=== PATIENT | male | born 1935 | race Caucasian/White ===

== ENCOUNTER 2017-02-13 10:48 | Inpatient (IN) | payer OTHER ==
[~2017-02-13] VITALS: Ht 185.4 cm; Wt 84.7 kg
[~2017-02-13 10:48] MED LIST: ALBU8.5H8 IH; AMLO10TA4 PO; ASCO250T2 PO; ASPI325T17 PO; ATEN25TA PO; BUSP15TA PO; BUSP5TAB2 PO; CIPR500T87 PO; DIPH25CA61 PO; DOCU100T3 PO; DULO30CA2 PO; ENOX40SY4 SQ; FLUC200T4 PO; GABA100C PO; GUAI400T6 PO; HALO5AMP3 PO; HYDR1TAB12 PO; INSU100V5 SQ-INSULIN; INSU100V8 SQ; LISI-170 PO; LISI2.5T PO; LORA-445 PO; LORA2TAB PO; MELA10CA PO; METO50TA82 PO; METR500T PO; MULT-115 PO; OXYC5CAP2 PO; PANT40TA5 PO; POTA10TA11 PO; PRED5TAB PO; SERT25TA3 PO; TRAM-47 PO; TRAZ100T15 PO
[2017-02-13] MEDS ORDERED: morphine SULFATE 10 MG/ML, 1ML ONE ×2 (11:46→12:56)
[2017-02-13] MEDS ORDERED: ONDANSETRON 2MG/ML, 2ML IVPush ONE (12:00)
[2017-02-13 12:08] LABS: HEMATOCRIT 39.7 % (39.2-51.8); HEMOGLOBIN 13.2 g/dL (13.7-18.0)
[2017-02-13 12:18] LABS: BLOOD UREA NITROGEN 27 mg/dL (7-18)
[2017-02-13 12:22] LABS: ASPARTATE AMINO TRANSFERASE 11 U/L (15-37)
[2017-02-13 12:31] LABS: ANISOCYTOSIS 1+
[2017-02-13] MEDS: MORPHINE SULFATE 4 MG/ML, 1ML IVPush PRN ×2 (12:44→13:09)
[2017-02-13] MEDS ORDERED: ONDANSETRON 2MG/ML, 2ML ONE (12:56)
[2017-02-13] MEDS ORDERED: ONDANSETRON 2MG/ML, 2ML IVPush PRN ×2 (13:00→13:30)
[2017-02-13] MEDS ORDERED: MORPHINE SULFATE 4 MG/ML, 1ML IVPush PRN (13:00)
[2017-02-13] MEDS ORDERED: SODIUM CHLORIDE FLUSH 10ML SYR IVF PRN (13:00)
[2017-02-13] MEDS ORDERED: GUAIFENESIN/DM 200-20MG, 10ML UDC PO PRN (13:30)
[2017-02-13] MEDS ORDERED: GUAIFENESIN 400 MG PO PRN (13:30)
[2017-02-13] MEDS ORDERED: ONDANSETRON ODT 4 MG PO PRN (13:30)
[2017-02-13] MEDS ORDERED: ALBUTEROL SULFATE 2.5 MG/3 ML HHN PRN (14:00)
[2017-02-13 14:09] VITALS: BP 183/98
[2017-02-13] MEDS: GABAPENTIN 100 MG CAPSULE PO SCH ×2 (16:43→21:19)
[2017-02-13] MEDS: LABETALOL 5MG/ML, 20ML IVPush PRN (16:57)
[2017-02-13 17:17] VITALS: BP 168/83
[2017-02-13 18:19] LABS: HEMATOCRIT 39.8 % (39.2-51.8); HEMOGLOBIN 13.2 g/dL (13.7-18.0)
[2017-02-13] MEDS: HYDROcodone/APAP 5/325 TABLET PO PRN ×2 (18:19→22:03)
[2017-02-13 19:02] VITALS: BP 146/81
[2017-02-13 21:16] VITALS: BP 132/80
[2017-02-13] MEDS: BUSPIRONE 5 MG TABLET PO SCH (21:18)
[2017-02-13] MEDS: METOPROLOL TARTRATE 50 MG TABLET PO SCH (21:18)
[2017-02-13] MEDS: LISINOPRIL 20 MG TABLET PO SCH (21:19)
[2017-02-13] MEDS: LORazepam 1MG TABLET PO SCH (21:19)
[2017-02-14 01:15] VITALS: BP 137/76
[2017-02-14 05:19] LABS: HEMOGLOBIN 11.4 g/dL (13.7-18.0); WHITE BLOOD COUNT 9.6 x10^3/uL (3.4-10)
[2017-02-14 05:20] LABS: BLOOD UREA NITROGEN 30 mg/dL (7-18)
[2017-02-14 06:37] VITALS: BP 158/77
[2017-02-14] MEDS ORDERED: SENNA/DOCUSATE TABLET PO SCH (09:00)
[2017-02-14] MEDS ORDERED: CYANOCOBALAMIN 1,000 MCG/ML, 1ML IM ONE (09:30)
[2017-02-14] MEDS: LISINOPRIL 20 MG TABLET PO SCH ×2 (10:00→20:22)
[2017-02-14] MEDS: PANTOPROZOLE 40MG TABLET PO SCH (10:00)
[2017-02-14] MEDS: CHOLECALCIFEROL 1,000 UNIT TABLET PO SCH (10:00)
[2017-02-14] MEDS: GABAPENTIN 100 MG CAPSULE PO SCH ×3 (10:00→20:22)
[2017-02-14] MEDS: ASCORBIC ACID 500 MG TABLET PO SCH (10:00)
[2017-02-14] MEDS: METOPROLOL TARTRATE 50 MG TABLET PO SCH ×2 (10:01→20:22)
[2017-02-14] MEDS: DULOXETINE 30 MG CAPSULE.DR PO SCH (10:01)
[2017-02-14] MEDS: MULTIVITAMIN 1 TABLET PO SCH (10:01)
[2017-02-14] MEDS: BUSPIRONE 5 MG TABLET PO SCH ×2 (10:02→20:22)
[2017-02-14] MEDS: HYDROcodone/APAP 5/325 TABLET PO PRN ×2 (10:02→15:14)
[2017-02-14] MEDS: LORazepam 1MG TABLET PO SCH ×2 (10:03→20:22)
[2017-02-14 12:51] VITALS: BP 160/91
[2017-02-14 13:01] VITALS: BP 101/66
[2017-02-14 20:17] VITALS: BP 165/85
[2017-02-15 02:01] VITALS: BP 173/100
[2017-02-15] MEDS: LABETALOL 5MG/ML, 20ML IVPush PRN (02:08)
[2017-02-15] MEDS: HYDROcodone/APAP 5/325 TABLET PO PRN (03:54)
[2017-02-15 05:44] LABS: HEMATOCRIT 40.3 % (39.2-51.8); HEMOGLOBIN 13.6 g/dL (13.7-18.0); WHITE BLOOD COUNT 14.5 x10^3/uL (3.4-10)
[2017-02-15 06:02] LABS: ASPARTATE AMINO TRANSFERASE 9 U/L (15-37); BLOOD UREA NITROGEN 23 mg/dL (7-18)
[2017-02-15 07:49] VITALS: BP 106/67
[2017-02-15] MEDS: BUSPIRONE 5 MG TABLET PO SCH ×2 (08:55→22:21)
[2017-02-15] MEDS: LISINOPRIL 20 MG TABLET PO SCH ×2 (08:55→22:20)
[2017-02-15] MEDS: CHOLECALCIFEROL 1,000 UNIT TABLET PO SCH (08:56)
[2017-02-15] MEDS: DULOXETINE 30 MG CAPSULE.DR PO SCH (08:56)
[2017-02-15] MEDS: MULTIVITAMIN 1 TABLET PO SCH (08:56)
[2017-02-15] MEDS: SENNA/DOCUSATE TABLET PO SCH (08:56)
[2017-02-15] MEDS: PANTOPROZOLE 40MG TABLET PO SCH (08:56)
[2017-02-15] MEDS: METOPROLOL TARTRATE 50 MG TABLET PO SCH ×2 (08:57→22:20)
[2017-02-15] MEDS: ASCORBIC ACID 500 MG TABLET PO SCH (08:57)
[2017-02-15 08:58] VITALS: BP 117/72
[2017-02-15] MEDS: LORazepam 1MG TABLET PO SCH (08:59)
[2017-02-15] MEDS: GABAPENTIN 100 MG CAPSULE PO SCH ×3 (08:59→22:20)
[2017-02-15] MEDS ORDERED: POTASSIUM CHLORIDE 20 MEQ TAB.ER.PRT PO ONE (10:00)
[2017-02-15] MEDS ORDERED: POLYETHYLENE GLYCOL 17 GM PACKET NG ONE (10:00)
[2017-02-15] MEDS ORDERED: SODIUM CHLORIDE 0.9%, 500ML IVBOLUS ONE (10:30)
[2017-02-15] MEDS: TAMSULOSIN 0.4 MG CAP.ER.24H PO SCH (11:49)
[2017-02-15] MEDS ORDERED: FLUCONAZOLE 10 MG/ML ORAL SUSP PO SCH (12:30)
[2017-02-15 13:20] VITALS: BP 149/89
[2017-02-15] MEDS: FLUCONAZOLE 200 MG TABLET PO SCH (13:38)
[2017-02-15] MEDS ORDERED: CEFTRIAXONE PMX 2GM/50ML 50 ML IV SCH (19:00)
[2017-02-15] MEDS ORDERED: LORazepam 1MG TABLET PO PRN (19:00)
[2017-02-15 19:01] VITALS: BP 157/93
[2017-02-15] MEDS ORDERED: PHARMACY MAY ADJ FOR RENAL FX MC PRN (20:00)
[2017-02-15] MEDS: AMPICILLIN/SULBACTAM 1,500 MG in SODIUM CHLORIDE 0.9% 50 ML IV SCH (21:11)
[2017-02-15 22:20] VITALS: BP 160/83
[2017-02-15] MEDS: DOXYCYCLINE 100MG TABLET PO SCH (22:20)
[2017-02-16] MEDS: AMPICILLIN/SULBACTAM 1,500 MG in SODIUM CHLORIDE 0.9% 50 ML IV SCH ×4 (01:44→22:07)
[2017-02-16 03:35] VITALS: BP 158/100
[2017-02-16 06:12] LABS: HEMATOCRIT 42.9 % (39.2-51.8); HEMOGLOBIN 14.4 g/dL (13.7-18.0); WHITE BLOOD COUNT 18.5 x10^3/uL (3.4-10)
[2017-02-16 06:25] LABS: ASPARTATE AMINO TRANSFERASE 12 U/L (15-37); BLOOD UREA NITROGEN 22 mg/dL (7-18)
[2017-02-16 06:34] LABS: DIFF TOTAL CELLS COUNTED 100 CELL DIFF
[2017-02-16 06:36] LABS: ANISOCYTOSIS 1+; VERIFY COUNTS? YES
[2017-02-16 06:37] LABS: POLYCHROMASIA 1+
[2017-02-16 07:28] VITALS: BP 112/76
[2017-02-16] MEDS: HYDROcodone/APAP 5/325 TABLET PO PRN ×2 (07:30→16:08)
[2017-02-16] MEDS: BUSPIRONE 5 MG TABLET PO SCH ×2 (09:30→22:09)
[2017-02-16] MEDS: SODIUM CHLORIDE 0.9% 1,000 ML IV SCH ×4 (09:30→22:05)
[2017-02-16] MEDS: DULOXETINE 30 MG CAPSULE.DR PO SCH (09:32)
[2017-02-16] MEDS: FLUCONAZOLE 200 MG TABLET PO SCH (09:33)
[2017-02-16] MEDS: TAMSULOSIN 0.4 MG CAP.ER.24H PO SCH (09:34)
[2017-02-16] MEDS: METOPROLOL TARTRATE 50 MG TABLET PO SCH ×2 (09:36→22:09)
[2017-02-16] MEDS: GABAPENTIN 100 MG CAPSULE PO SCH ×3 (09:37→22:09)
[2017-02-16] MEDS: MULTIVITAMIN 1 TABLET PO SCH (09:37)
[2017-02-16] MEDS: LISINOPRIL 20 MG TABLET PO SCH ×2 (09:38→22:09)
[2017-02-16] MEDS: PANTOPROZOLE 40MG TABLET PO SCH (09:38)
[2017-02-16] MEDS: DOXYCYCLINE 100MG TABLET PO SCH ×2 (09:39→22:09)
[2017-02-16] MEDS: SENNA/DOCUSATE TABLET PO SCH (09:39)
[2017-02-16] MEDS: CHOLECALCIFEROL 1,000 UNIT TABLET PO SCH (09:40)
[2017-02-16] MEDS: ASCORBIC ACID 500 MG TABLET PO SCH (09:40)
[2017-02-16] MEDS ORDERED: POTASSIUM CHLORIDE 20 MEQ TAB.ER.PRT PO ONE (10:00)
[2017-02-16] MEDS ORDERED: OMNIPAQUE 350 MG/ML, 100ML BOTTLE ONE (10:20)
[2017-02-16] MEDS: BISACODYL 10 MG SUPP PR PRN (11:35)
[2017-02-16 19:30] VITALS: BP 138/80
[2017-02-17] MEDS: AMPICILLIN/SULBACTAM 1,500 MG in SODIUM CHLORIDE 0.9% 50 ML IV SCH ×4 (02:17→21:36)
[2017-02-17 03:08] VITALS: BP 146/81
[2017-02-17] MEDS: HYDROcodone/APAP 5/325 TABLET PO PRN ×5 (03:37→22:15)
[2017-02-17 05:10] LABS: HEMATOCRIT 34.4 % (39.2-51.8); HEMOGLOBIN 11.5 g/dL (13.7-18.0); WHITE BLOOD COUNT 16.5 x10^3/uL (3.4-10)
[2017-02-17 05:21] LABS: ASPARTATE AMINO TRANSFERASE 6 U/L (15-37); BLOOD UREA NITROGEN 32 mg/dL (7-18)
[2017-02-17 08:05] VITALS: BP 118/71
[2017-02-17] MEDS: SENNA/DOCUSATE TABLET PO SCH (10:19)
[2017-02-17] MEDS: LISINOPRIL 20 MG TABLET PO SCH ×2 (10:19→22:15)
[2017-02-17] MEDS: FLUCONAZOLE 200 MG TABLET PO SCH (10:19)
[2017-02-17] MEDS: DOXYCYCLINE 100MG TABLET PO SCH ×2 (10:19→22:15)
[2017-02-17] MEDS: BUSPIRONE 5 MG TABLET PO SCH ×2 (10:19→22:15)
[2017-02-17] MEDS: DULOXETINE 30 MG CAPSULE.DR PO SCH (10:19)
[2017-02-17] MEDS: GABAPENTIN 100 MG CAPSULE PO SCH ×3 (10:19→22:15)
[2017-02-17] MEDS: TAMSULOSIN 0.4 MG CAP.ER.24H PO SCH (10:19)
[2017-02-17] MEDS: MULTIVITAMIN 1 TABLET PO SCH (10:20)
[2017-02-17] MEDS: METOPROLOL TARTRATE 50 MG TABLET PO SCH ×2 (10:20→22:15)
[2017-02-17] MEDS: PANTOPROZOLE 40MG TABLET PO SCH (10:20)
[2017-02-17] MEDS: ASCORBIC ACID 500 MG TABLET PO SCH (10:20)
[2017-02-17] MEDS: POTASSIUM CHLORIDE 20 MEQ in SODIUM CHLORIDE 0.45% 1,000 ML IV SCH ×2 (10:29→22:57)
[2017-02-17] MEDS: CHOLECALCIFEROL 1,000 UNIT TABLET PO SCH (10:35)
[2017-02-17 13:00] VITALS: BP 104/66
[2017-02-17] MEDS: BISACODYL 10 MG SUPP PR PRN (17:33)
[2017-02-17 19:19] VITALS: BP 108/62
[2017-02-17 22:11] VITALS: BP 151/89
[2017-02-18 02:14] VITALS: BP 151/79
[2017-02-18] MEDS: AMPICILLIN/SULBACTAM 1,500 MG in SODIUM CHLORIDE 0.9% 50 ML IV SCH ×4 (03:08→20:07)
[2017-02-18] MEDS: HYDROcodone/APAP 5/325 TABLET PO PRN ×3 (05:12→20:13)
[2017-02-18 05:56] LABS: ASPARTATE AMINO TRANSFERASE 7 U/L (15-37); BLOOD UREA NITROGEN 36 mg/dL (7-18)
[2017-02-18 06:11] LABS: HEMATOCRIT 32.6 % (39.2-51.8); HEMOGLOBIN 10.7 g/dL (13.7-18.0); WHITE BLOOD COUNT 16.4 x10^3/uL (3.4-10)
[2017-02-18 06:30] VITALS: BP 156/83
[2017-02-18] MEDS: TAMSULOSIN 0.4 MG CAP.ER.24H PO SCH (09:04)
[2017-02-18] MEDS: CHOLECALCIFEROL 1,000 UNIT TABLET PO SCH (09:04)
[2017-02-18] MEDS: FLUCONAZOLE 200 MG TABLET PO SCH (09:04)
[2017-02-18] MEDS: ASCORBIC ACID 500 MG TABLET PO SCH (09:05)
[2017-02-18] MEDS: MULTIVITAMIN 1 TABLET PO SCH (09:05)
[2017-02-18] MEDS: METOPROLOL TARTRATE 50 MG TABLET PO SCH ×2 (09:05→20:10)
[2017-02-18] MEDS: SENNA/DOCUSATE TABLET PO SCH (09:09)
[2017-02-18] MEDS: DULOXETINE 30 MG CAPSULE.DR PO SCH (09:09)
[2017-02-18] MEDS: GABAPENTIN 100 MG CAPSULE PO SCH ×3 (09:09→20:10)
[2017-02-18] MEDS: PANTOPROZOLE 40MG TABLET PO SCH (09:09)
[2017-02-18] MEDS: LISINOPRIL 20 MG TABLET PO SCH ×2 (09:09→20:10)
[2017-02-18] MEDS: BUSPIRONE 5 MG TABLET PO SCH ×2 (09:09→20:09)
[2017-02-18] MEDS: DOXYCYCLINE 100MG TABLET PO SCH ×2 (09:09→20:10)
[2017-02-18] MEDS: POLYETHYLENE GLYCOL 17 GM PACKET PO PRN (09:10)
[2017-02-18] MEDS ORDERED: HYDROcodone/APAP 5/325 TABLET PO ONE (14:00)
[2017-02-18 14:01] VITALS: BP 146/89
[2017-02-18] MEDS ORDERED: MAGNESIUM CITRATE 300ML ORAL SOL PO ONE (15:00)
[2017-02-18 18:59] VITALS: BP 120/80
[2017-02-18] MEDS: BISACODYL 10 MG SUPP PR PRN (20:13)
[2017-02-19] VITALS (7 sets, daily range): BP systolic 134–200; BP diastolic 80–129
[2017-02-19] MEDS: AMPICILLIN/SULBACTAM 1,500 MG in SODIUM CHLORIDE 0.9% 50 ML IV SCH ×4 (01:41→22:05)
[2017-02-19] MEDS: HYDROcodone/APAP 5/325 TABLET PO PRN (06:02)
[2017-02-19] MEDS: POLYETHYLENE GLYCOL 17 GM PACKET PO PRN (06:03)
[2017-02-19 06:54] LABS: HEMATOCRIT 36.4 % (39.2-51.8); HEMOGLOBIN 12.2 g/dL (13.7-18.0); WHITE BLOOD COUNT 13.5 x10^3/uL (3.4-10)
[2017-02-19 07:06] LABS: BLOOD UREA NITROGEN 36 mg/dL (7-18)
[2017-02-19 07:09] LABS: ASPARTATE AMINO TRANSFERASE 8 U/L (15-37)
[2017-02-19] MEDS ORDERED: SODIUM CHLORIDE 0.9% 500 ML IV SCH (09:30)
[2017-02-19] MEDS: CHOLECALCIFEROL 1,000 UNIT TABLET PO SCH (11:18)
[2017-02-19] MEDS: FLUCONAZOLE 200 MG TABLET PO SCH (11:19)
[2017-02-19] MEDS: ASCORBIC ACID 500 MG TABLET PO SCH (11:19)
[2017-02-19] MEDS: MULTIVITAMIN 1 TABLET PO SCH (11:19)
[2017-02-19] MEDS: DULOXETINE 30 MG CAPSULE.DR PO SCH (11:19)
[2017-02-19] MEDS: PANTOPROZOLE 40MG TABLET PO SCH (11:19)
[2017-02-19] MEDS: METOPROLOL TARTRATE 50 MG TABLET PO SCH ×2 (11:19→22:06)
[2017-02-19] MEDS: GABAPENTIN 100 MG CAPSULE PO SCH ×3 (11:20→22:09)
[2017-02-19] MEDS: SENNA/DOCUSATE TABLET PO SCH (11:20)
[2017-02-19] MEDS: DOXYCYCLINE 100MG TABLET PO SCH ×2 (11:28→22:09)
[2017-02-19] MEDS: TAMSULOSIN 0.4 MG CAP.ER.24H PO SCH (11:28)
[2017-02-19] MEDS ORDERED: GOLYTELY 4,000ML ORAL.SOL PO ONE (11:30)
[2017-02-19] MEDS: BUSPIRONE 5 MG TABLET PO SCH ×2 (11:38→22:09)
[2017-02-19] MEDS ORDERED: LABETALOL 5MG/ML, 20ML IVPush PRN (12:30)
[2017-02-19] MEDS: SODIUM CHLORIDE 0.45% 1,000 ML IV SCH (13:15)
[2017-02-19] MEDS: LACTULOSE 20 GM/30 ML UDC PO SCH ×2 (17:30→22:09)
[2017-02-20] MEDS: SODIUM CHLORIDE 0.45% 1,000 ML IV SCH ×3 (01:09→21:53)
[2017-02-20 01:46] VITALS: BP 160/90
[2017-02-20] MEDS: AMPICILLIN/SULBACTAM 1,500 MG in SODIUM CHLORIDE 0.9% 50 ML IV SCH ×4 (04:20→21:52)
[2017-02-20 04:44] LABS: HEMATOCRIT 35.8 % (39.2-51.8); HEMOGLOBIN 12.1 g/dL (13.7-18.0)
[2017-02-20 04:56] LABS: BLOOD UREA NITROGEN 28 mg/dL (7-18)
[2017-02-20 04:59] LABS: ASPARTATE AMINO TRANSFERASE 8 U/L (15-37)
[2017-02-20 06:58] VITALS: BP 179/91
[2017-02-20 07:30] VITALS: BP 144/79
[2017-02-20] MEDS: LACTULOSE 20 GM/30 ML UDC PO SCH ×3 (09:00→20:08)
[2017-02-20] MEDS: SENNA/DOCUSATE TABLET PO SCH (09:00)
[2017-02-20] MEDS: ASCORBIC ACID 500 MG TABLET PO SCH ×2 (09:00→10:22)
[2017-02-20] MEDS: PANTOPROZOLE 40MG TABLET PO SCH ×2 (09:00→10:23)
[2017-02-20] MEDS: BUSPIRONE 5 MG TABLET PO SCH ×3 (09:00→20:07)
[2017-02-20] MEDS: CHOLECALCIFEROL 1,000 UNIT TABLET PO SCH ×2 (09:00→10:24)
[2017-02-20] MEDS: HEPARIN 5,000 UNITS/ML, 1ML SQ SCH ×2 (10:22→16:25)
[2017-02-20] MEDS: DULOXETINE 30 MG CAPSULE.DR PO SCH (10:23)
[2017-02-20] MEDS: MULTIVITAMIN 1 TABLET PO SCH (10:23)
[2017-02-20] MEDS: FLUCONAZOLE 200 MG TABLET PO SCH (10:23)
[2017-02-20] MEDS: METOPROLOL TARTRATE 50 MG TABLET PO SCH ×2 (10:24→20:07)
[2017-02-20] MEDS: GABAPENTIN 100 MG CAPSULE PO SCH ×3 (10:24→20:07)
[2017-02-20] MEDS: TAMSULOSIN 0.4 MG CAP.ER.24H PO SCH (10:24)
[2017-02-20] MEDS: DOXYCYCLINE 100MG TABLET PO SCH ×2 (10:25→20:07)
[2017-02-20 15:41] VITALS: BP 176/92
[2017-02-20 19:41] VITALS: BP 172/101
[2017-02-20] MEDS: HYDROcodone/APAP 5/325 TABLET PO PRN (21:02)
[2017-02-21] MEDS: HEPARIN 5,000 UNITS/ML, 1ML SQ SCH ×3 (01:00→16:43)
[2017-02-21 01:43] VITALS: BP 163/73
[2017-02-21 04:58] LABS: HEMATOCRIT 30.6 % (39.2-51.8); HEMOGLOBIN 10.3 g/dL (13.7-18.0); WHITE BLOOD COUNT 8.7 x10^3/uL (3.4-10)
[2017-02-21 04:59] LABS: BLOOD UREA NITROGEN 21 mg/dL (7-18)
[2017-02-21] MEDS: AMPICILLIN/SULBACTAM 1,500 MG in SODIUM CHLORIDE 0.9% 50 ML IV SCH ×4 (05:14→22:01)
[2017-02-21 07:22] VITALS: BP 175/89
[2017-02-21] MEDS: TAMSULOSIN 0.4 MG CAP.ER.24H PO SCH (07:35)
[2017-02-21] MEDS: METOPROLOL TARTRATE 50 MG TABLET PO SCH ×2 (07:35→20:11)
[2017-02-21] MEDS: DULOXETINE 30 MG CAPSULE.DR PO SCH (07:35)
[2017-02-21] MEDS: FLUCONAZOLE 200 MG TABLET PO SCH (07:35)
[2017-02-21] MEDS: DOXYCYCLINE 100MG TABLET PO SCH ×2 (07:36→20:11)
[2017-02-21] MEDS: BUSPIRONE 5 MG TABLET PO SCH ×2 (07:36→20:14)
[2017-02-21] MEDS: GABAPENTIN 100 MG CAPSULE PO SCH ×3 (07:36→20:14)
[2017-02-21] MEDS: SODIUM CHLORIDE 0.45% 1,000 ML IV SCH ×3 (07:39→23:29)
[2017-02-21] MEDS: SENNA/DOCUSATE TABLET PO SCH (07:42)
[2017-02-21] MEDS: LACTULOSE 20 GM/30 ML UDC PO SCH ×3 (07:42→20:16)
[2017-02-21] MEDS: MULTIVITAMIN 1 TABLET PO SCH (07:42)
[2017-02-21] MEDS: PANTOPROZOLE 40MG TABLET PO SCH (07:42)
[2017-02-21] MEDS: CHOLECALCIFEROL 1,000 UNIT TABLET PO SCH (07:43)
[2017-02-21] MEDS: ASCORBIC ACID 500 MG TABLET PO SCH (07:43)
[2017-02-21] MEDS ORDERED: ALBUMIN HUMAN 25% 100 ML IV ONE (09:00)
[2017-02-21] MEDS ORDERED: POTASSIUM CHLORIDE 20 MEQ TAB.ER.PRT PO ONE ×2 (09:00→12:00)
[2017-02-21] MEDS ORDERED: FUROSEMIDE 20 MG/2 ML IV ONE (09:00)
[2017-02-21] MEDS: HYDROcodone/APAP 5/325 TABLET PO PRN ×3 (10:03→19:59)
[2017-02-21 12:24] VITALS: BP 183/92
[2017-02-21 13:58] VITALS: BP 178/85
[2017-02-21] MEDS: AMLODIPINE 5 MG TABLET PO SCH ×2 (15:58→20:19)
[2017-02-21 19:58] VITALS: BP 136/83
[2017-02-21 19:59] LABS: BLOOD UREA NITROGEN 17 mg/dL (7-18)
[2017-02-21 20:00] VITALS: BP 146/81
[2017-02-21] MEDS ORDERED: AMLODIPINE 5 MG TABLET PO SCH (21:00)
[2017-02-22] VITALS (7 sets, daily range): BP systolic 138–187; BP diastolic 76–94
[2017-02-22] MEDS: HEPARIN 5,000 UNITS/ML, 1ML SQ SCH ×3 (00:52→16:50)
[2017-02-22] MEDS: HYDROcodone/APAP 5/325 TABLET PO PRN ×2 (03:44→16:55)
[2017-02-22] MEDS: AMPICILLIN/SULBACTAM 1,500 MG in SODIUM CHLORIDE 0.9% 50 ML IV SCH ×3 (03:57→16:00)
[2017-02-22] MEDS: PANTOPROZOLE 40MG TABLET PO SCH (08:47)
[2017-02-22] MEDS: MULTIVITAMIN 1 TABLET PO SCH (08:47)
[2017-02-22] MEDS: FLUCONAZOLE 200 MG TABLET PO SCH (08:47)
[2017-02-22] MEDS: TAMSULOSIN 0.4 MG CAP.ER.24H PO SCH (08:48)
[2017-02-22] MEDS: GABAPENTIN 100 MG CAPSULE PO SCH ×3 (08:49→20:57)
[2017-02-22] MEDS: BUSPIRONE 5 MG TABLET PO SCH ×2 (08:49→20:53)
[2017-02-22] MEDS: ASCORBIC ACID 500 MG TABLET PO SCH (08:50)
[2017-02-22] MEDS: METOPROLOL TARTRATE 50 MG TABLET PO SCH ×2 (08:51→20:53)
[2017-02-22] MEDS: DOXYCYCLINE 100MG TABLET PO SCH ×2 (08:51→20:53)
[2017-02-22] MEDS: AMLODIPINE 5 MG TABLET PO SCH ×2 (08:51→20:53)
[2017-02-22] MEDS: CHOLECALCIFEROL 1,000 UNIT TABLET PO SCH (08:52)
[2017-02-22] MEDS: DULOXETINE 30 MG CAPSULE.DR PO SCH (08:52)
[2017-02-22] MEDS: SENNA/DOCUSATE TABLET PO SCH (08:54)
[2017-02-22] MEDS: LACTULOSE 20 GM/30 ML UDC PO SCH ×3 (08:54→20:57)
[2017-02-22] MEDS ORDERED: POTASSIUM CHLORIDE 20 MEQ TAB.ER.PRT PO ONE ×2 (11:00→17:30)
[2017-02-22] MEDS: SODIUM CHLORIDE 0.45% 1,000 ML IV SCH ×2 (11:13→15:30)
[2017-02-22] MEDS: AMOXICILLIN/CLAV 875-125MG TABLET PO SCH (20:53)
[2017-02-23] MEDS: HEPARIN 5,000 UNITS/ML, 1ML SQ SCH ×2 (01:25→08:57)
[2017-02-23 01:52] VITALS: BP 161/80
[2017-02-23] MEDS: SODIUM CHLORIDE 0.45% 1,000 ML IV SCH (03:00)
[2017-02-23 07:04] VITALS: BP 151/95
[2017-02-23] MEDS: MULTIVITAMIN 1 TABLET PO SCH (08:58)
[2017-02-23] MEDS: DULOXETINE 30 MG CAPSULE.DR PO SCH (08:58)
[2017-02-23] MEDS: DOXYCYCLINE 100MG TABLET PO SCH (08:58)
[2017-02-23] MEDS: FLUCONAZOLE 200 MG TABLET PO SCH (08:58)
[2017-02-23] MEDS: CHOLECALCIFEROL 1,000 UNIT TABLET PO SCH (08:58)
[2017-02-23] MEDS: TAMSULOSIN 0.4 MG CAP.ER.24H PO SCH (08:59)
[2017-02-23] MEDS: PANTOPROZOLE 40MG TABLET PO SCH (08:59)
[2017-02-23] MEDS: AMLODIPINE 5 MG TABLET PO SCH (08:59)
[2017-02-23] MEDS: METOPROLOL TARTRATE 50 MG TABLET PO SCH (08:59)
[2017-02-23] MEDS: AMOXICILLIN/CLAV 875-125MG TABLET PO SCH (08:59)
[2017-02-23] MEDS: ASCORBIC ACID 500 MG TABLET PO SCH (08:59)
[2017-02-23] MEDS: BUSPIRONE 5 MG TABLET PO SCH (09:00)
[2017-02-23] MEDS: LACTULOSE 20 GM/30 ML UDC PO SCH (09:00)
[2017-02-23] MEDS: GABAPENTIN 100 MG CAPSULE PO SCH (09:00)
[2017-02-23] MEDS: SENNA/DOCUSATE TABLET PO SCH (09:00)
[2017-02-23] MEDS: HYDROcodone/APAP 5/325 TABLET PO PRN (12:05)
[2017-02-23 14:00] VITALS: BP 143/82
[2017-02-23 15:00] LABS: ASPARTATE AMINO TRANSFERASE 12 U/L (15-37); BLOOD UREA NITROGEN 18 mg/dL (7-18)
[2017-02-23] MEDS ORDERED: POLY17PO5 PO (16:37)
[2017-02-23] MEDS ORDERED: PRED10TA PO (16:37)
[2017-02-23] MEDS ORDERED: TAMS-11 PO (16:37)
[2017-02-23] MEDS ORDERED: LACT20SO13 PO (16:37)
[2017-02-23] MEDS ORDERED: AMOX1TAB12 PO (16:44)
[2017-02-23] MEDS ORDERED: FLUC200T PO (16:44)
[2017-02-23] MEDS ORDERED: DOXY100T PO (16:44)
== END 2017-02-23 18:50 | disposition home health service (06) | DRG 871 ==
LOC: ED 13:02 → EDIP 13:15 → 4NOR 13:47 → 5SO 02-16 10:32 → 4EST 02-21 11:27 → 4WST 02-22 12:45 → 4EST 02-22 12:51
PROVIDERS: ADMIT Internal Medicine; ATTEND Internal Medicine
PROC: 0T9B70Z Drainage of Bladder with Drainage Device, Via Natural or Artificial Opening (ICD-10-PCS; principal; 2017-02-13)
DX: A41.9 Sepsis, unspecified organism (principal); J18.9 Pneumonia, unspecified organism; N17.0 Acute kidney failure with tubular necrosis; E44.0 Moderate protein-calorie malnutrition; N13.30 Unspecified hydronephrosis; E87.0 Hyperosmolality and hypernatremia; E11.22 Type 2 diabetes mellitus with diabetic chronic kidney disease; E11.65 Type 2 diabetes mellitus with hyperglycemia; M48.02 Spinal stenosis, cervical region; N39.0 Urinary tract infection, site not specified; N18.3 Chronic kidney disease, stage 3 (moderate); D75.89 Other specified diseases of blood and blood-forming organs; N40.1 Benign prostatic hyperplasia with lower urinary tract symptoms; R33.8 Other retention of urine; E53.8 Deficiency of other specified B group vitamins; E55.9 Vitamin D deficiency, unspecified; E78.5 Hyperlipidemia, unspecified; G89.4 Chronic pain syndrome; F03.90 Unspecified dementia, unspecified severity, without behavioral disturbance, psychotic disturbance, mood disturbance, and anxiety; F32.9 Major depressive disorder, single episode, unspecified; F41.1 Generalized anxiety disorder; I12.9 Hypertensive chronic kidney disease with stage 1 through stage 4 chronic kidney disease, or unspecified chronic kidney disease; K21.9 Gastro-esophageal reflux disease without esophagitis; K56.41 Fecal impaction; Z96.642 Presence of left artificial hip joint; M19.90 Unspecified osteoarthritis, unspecified site; N50.89 Other specified disorders of the male genital organs; D64.9 Anemia, unspecified; R31.0 Gross hematuria; Z68.24 Body mass index [BMI] 24.0-24.9, adult; Z79.899 Other long term (current) drug therapy; Z90.49 Acquired absence of other specified parts of digestive tract; Z83.3 Family history of diabetes mellitus
CPT/HCPCS: 36415; 51702; 70450; 71010; 74000; 74176; 74177; 76770; 76870; 80048; 80053; 81001; 82040; 82306; 82550; 82607; 82746; 83735; 85014; 85018; 85025; 85610; 85730; 87040; 87070; 87077; 87086; 87106; 87147; 87186; 87205; 93005; 93306; 93922; 93970; 96374; 96375; 97163; J1644; J2405; J3480; P9047; Q9967; J0295; J1940; J3420; J7030; J7040; J7512